=== PATIENT | female | born 1995 | race Two or more races ===

== ENCOUNTER 2018-10-10 23:56 | Emergency (ER) | payer OTHER ==
[~2018-10-10] VITALS: Ht 165.1 cm; Wt 68.0 kg
[2018-10-11 00:26] VITALS: BP 130/87
--- NOTE | 2018-10-11 00:26 | NUR ---
ED Nurse Note: Patient presents with report of fall while skating and tooth knocked further into gum.
[2018-10-11] MEDS ORDERED: NORCO 5-325 TA1 EACH ORAL (01:51)
[2018-10-11] MEDS ORDERED: IBUPROFEN600 MG ORAL (01:51)
[2018-10-11] MEDS ORDERED: HYDROcodone/Acetamin 5/325 tab ORAL ONE (02:00)
--- NOTE | 2018-10-12 22:07 | Emergency Room Report ---
History of Present Illness General Chief Complaint: Toothache Source: Patient Present Illness HPI Patient is a 23-year-old female presented after increased toothache. Patient reports having a fall while skating. She denies any loss of consciousness. She denies being . Patient reports having some facial pain primarily to the upper central incisor. She denies any severe headache. She is not currently taking any medications. Patient denies any neck or back pain. She denies other locations of injury.Injury occurred just prior to arrival. Allergies: Coded Allergies: No Known Allergies (Unverified , 10/11/18) Patient History Past Medical History: see triage record Last Menstrual Period: 09/30/18 Now: No : 0 Para: 0 Reviewed Nursing Documentation: PMH: Agreed; PSxH: Agreed Nursing Documentation-PMH Past Medical History: No Stated History Review of Systems All Other Systems: negative except mentioned in HPI Physical Exam Vital Signs Date Time Temp Pulse Resp B/P (MAP) Pulse Ox O2 Delivery O2 Flow Rate FiO2 10/11/18 00:26 98.2 93 17 130/87 (101) Room Air General Appearance: well appearing, no apparent distress, alert, GCS 15 Head: normocephalic, atraumatic ENT: normal voice, other - left upper incisor 10 with upward displacement, several other upper teeth slight loosening Neck: full range of motion, supple Respiratory: no respiratory distress, speaking full sentences Cardiovascular #1: normal inspection Gastrointestinal: normal inspection Musculoskeletal: normal inspection Neurologic: normal inspection, alert, oriented x3, 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 Differential diagnosis include was not limited to fracture, [place] fracture, avulsion among others. Patient has a benign exam and does not appear to require any further imaging or laboratory testing at this time. Patient appears to be likely to have had a dental socket fracture due to tooth placement. Midface appears to be stable.Patient was advised to follow-up with a dentist. Patient does not appear to have any evidence of acute head injury. Is given medications for pain. Patient advised to return if she had any worsening of condition or other concerns. Last Vital Signs Date Time Temp Pulse Resp B/P (MAP) Pulse Ox O2 Delivery O2 Flow Rate FiO2 10/11/18 00:26 98.2 78 17 130/87 Room Air Status: improved Disposition: HOME, SELF-CARE Condition: Stable Scripts Hydrocodone Bit/Acetaminophen 5-325* (NORCO 5-325*) 1 Each Tablet 1 TAB ORAL Q6H PRN for For Pain, #20 TAB 0 Refills Prov: Nomi Arita MD 10/11/18 Ibuprofen* (MOTRIN*) 600 Mg Tablet 600 MG ORAL Q8H PRN for For Pain, #30 TAB 0 Refills Prov: Nomi Arita MD 10/11/18 Referrals: NOT CHOSEN IPA/,REFERRING Patient Instructions: Tooth Displacement Additional Instructions: Follow up with a dentist or oral surgeon as soon as possible. Nomi Arita MD Oct 12, 2018 22:07
== END 2018-10-11 02:05 | disposition home or self-care (01) ==
LOC: EMR 10-11 01:02
DX: S09.93XA Unspecified injury of face, initial encounter (principal); V00.131A Fall from skateboard, initial encounter; Y92.9 Unspecified place or not applicable
CPT/HCPCS: 99282